=== PATIENT | female | born 1985 | race Caucasian/White ===

== ENCOUNTER 2017-06-03 06:01 | Emergency (ER) | payer MEDICAID ==
[~2017-06-03] VITALS: Ht 157.5 cm; Wt 78.0 kg
[2017-06-03 06:07] VITALS: Ht 157.5 cm; Wt 78.0 kg
[2017-06-03 08:32] VITALS: BP 114/63
== END 2017-06-03 08:32 | disposition home or self-care (01) ==
LOC: ED 06:01
DX: R07.89 Other chest pain (principal); R00.2 Palpitations; F41.9 Anxiety disorder, unspecified

== ENCOUNTER 2018-06-04 23:03 | Emergency (ER) | payer MEDICAID | END 2018-06-05 01:55 | disposition home or self-care (01) | LOC: ED 23:03 ==

== ENCOUNTER 2018-06-06 22:49 | Emergency (ER) | payer MEDICAID ==
[~2018-06-06] VITALS: Ht 157.5 cm; Wt 98.0 kg
[2018-06-06 23:01] VITALS: Ht 157.5 cm; Wt 98.0 kg
[2018-06-07 00:50] VITALS: BP 107/41
== END 2018-06-07 00:50 | disposition home or self-care (01) ==
LOC: ED 22:49
DX: O03.4 Incomplete spontaneous abortion without complication (principal); O99.341 Other mental disorders complicating pregnancy, first trimester; F41.9 Anxiety disorder, unspecified; Z3A.01 Less than 8 weeks gestation of pregnancy

== ENCOUNTER 2019-01-27 00:04 | Emergency (ER) | payer MEDICAID ==
[~2019-01-27] VITALS: Ht 157.5 cm; Wt 100.4 kg
[2019-01-27 00:15] VITALS: Ht 157.5 cm; Wt 100.4 kg
[2019-01-27 01:27] LABS: BASOPHIL % 0.4 % (0-2); PLATELET COUNT 200 x10^3mcL (130-400)
[2019-01-27 01:39] LABS: CALCIUM 8.1 mg/dL (8.5-10.1); CARBON DIOXIDE 26.4 mmol/L (21-32); CHLORIDE SERUM 101 mmol/L (98-107); CREATININE SERUM 0.7 mg/dL (0.6-1.0); GFR1 > 60 mL/min; GLUCOSE SERUM 102 mg/dL (74-106); SODIUM SERUM 137 mmol/L (136-145)
[2019-01-27 01:44] LABS: ALBUMIN 3.2 g/dL (3.4-5.0); ALKALINE PHOSPHATASE 86 U/L (46-116); ALT/SGPT 20 U/L (14-59); AST/SGOT 10 U/L (15-37); BILIRUBIN TOTAL 0.27 mg/dL (0.20-1.00); LIPASE 199 IU/L (73-393); TOTAL PROTEIN, SERUM 7.9 g/dL (6.4-8.2)
[2019-01-27 03:12] LABS: microscopic required? YES; urine erythrocyte TRACE (NEGATIVE)
[2019-01-27 04:06] VITALS: BP 92/50
== END 2019-01-27 04:06 | disposition home or self-care (01) ==
LOC: ED 00:04
PROVIDERS: Emergency Medicine
DX: O21.9 Vomiting of pregnancy, unspecified (principal); O99.341 Other mental disorders complicating pregnancy, first trimester; F41.9 Anxiety disorder, unspecified; R82.71 Bacteriuria; Z3A.08 8 weeks gestation of pregnancy
CPT/HCPCS: J1200; J2405; J2765; J7030

== ENCOUNTER 2019-06-27 17:27 | Emergency (ER) | payer MEDICAID ==
[~2019-06-27] VITALS: Ht 157.5 cm; Wt 101.6 kg
[2019-06-27 17:49] VITALS: BP 133/85; Ht 157.5 cm; Wt 101.6 kg
== END 2019-06-27 18:52 | disposition home or self-care (01) ==
LOC: ED 17:27
DX: O99.513 Diseases of the respiratory system complicating pregnancy, third trimester (principal); J06.9 Acute upper respiratory infection, unspecified; H10.9 Unspecified conjunctivitis; Z3A.30 30 weeks gestation of pregnancy
CPT/HCPCS: 87804

== ENCOUNTER 2019-06-28 07:08 | Emergency (ER) | payer MEDICAID ==
[~2019-06-28] VITALS: Ht 157.5 cm; Wt 101.2 kg
[2019-06-28 07:30] VITALS: Ht 157.5 cm; Wt 101.2 kg
[2019-06-28 09:03] VITALS: BP 121/78
== END 2019-06-28 09:03 | disposition home or self-care (01) ==
LOC: ED 07:08
DX: O26.893 Other specified pregnancy related conditions, third trimester (principal); O99.513 Diseases of the respiratory system complicating pregnancy, third trimester; R51 Headache; H61.22 Impacted cerumen, left ear; Z3A.30 30 weeks gestation of pregnancy